=== PATIENT | female | born 1980 | race Caucasian/White ===

== ENCOUNTER 2019-07-13 12:00 | Inpatient (IN) | payer OTHER ==
[~2019-07-13 12:00] MED LIST: CITRIC ACID/SODIUM CITRATE 30 ML UNIT-DOSE CUP PO ONE; ELECTROLYTE-148 SOLN 500 ML IV ONE
[2019-07-13] MEDS ORDERED: ELECTROLYTE-148 SOLN 1,000 ML IV SCH (12:30)
[2019-07-13] MEDS ORDERED: ONDANSETRON 4 MG/2 ML VIAL IVPUSH PRN (12:51)
[2019-07-13 13:45] VITALS: BMI 35.5
[2019-07-13] MEDS ORDERED: morphine SULFATE/PF 0.5 MG/ML (2cc Syringe - QUVA) ONE (14:15)
[2019-07-13] MEDS ORDERED: WITCH HAZEL 50% (TUCKS) 40 PAD/JAR PAD TP PRN (14:21)
[2019-07-13] MEDS ORDERED: BENZOCAINE 20% 57 GM BOTTLE TP PRN (14:21)
[2019-07-13] MEDS ORDERED: diphenhydrAMINE HCL 25 MG CAPSULE (FP) PO PRN (14:21)
[2019-07-13] MEDS ORDERED: oxyCODONE HCL 5 MG TABLET PO PRN (14:21)
[2019-07-13] MEDS ORDERED: BENZOCAINE 28 GM HEMORRHOIDAL OINTMENT PR PRN (14:21)
[2019-07-13] MEDS ORDERED: METHYLERGONOVINE MALEATE 0.2 MG/1 ML AMP IM PRN (14:21)
[2019-07-13] MEDS ORDERED: OXYTOCIN 20 UNITS in 0.9% NS 20 UNIT/1,000 ML INFUS.BAG IV ONE (14:24)
[2019-07-13] MEDS ORDERED: D5W-LR W/ 20 UNITS OXYTOCIN 20 UNIT/1,000 ML INFUS.BAG IV SCH (14:30)
--- NOTE | 2019-07-13 14:37 | HP ---
Past Medical History - Admission Chief Complaint: Here for repeat c section. History of Present Illness: 38 y/o female with SIUP at 39.1 weeks here for scheduled repeat c section and bilateral tubal sterilization. complicated by AMA History Source: Patient, Medical Record Limitations to Obtaining History: No Limitations - Past Medical History Cardiovascular: Yes: HTN (h/o pre Eclampsia with prior ) Pulmonary: No: COPD Gastrointestinal: No: GERD Hepatobiliary: No: Cholelithiasis Renal/: No: UTI Reproductive: Yes: Fibroids. No: PID ...: 8 ...Para: 1 ...Term: 1 ...: 0 ...Spon : 1 ...Induced : 5 ...Multiple Gestation: 0 ...EDC by [facility]: 07/19/19 Infectious Disease: Yes: STD's (HSV has been on valtrex) Psych: Yes: Bipolar Endocrine: No: Diabetes Mellitus - Past Surgical History Past Surgical History: Yes: Hx Myomectomy: No Hx Transabdominal Cerclage: No - Smoking History Smoking history: Never smoked Have you smoked in the past 12 months: No - Alcohol/Substance Use Hx Alcohol Use: No - Social History History of Recent Travel: No Home Medications - Allergies Allergies/Adverse Reactions: Allergies Allergy/AdvReac Type Severity Reaction Status Date / Time No Known Allergies Allergy Verified 07/13/19 12:33 - Home Medications Home Medications: Ambulatory Orders Aspirin [ASA -] 81 mg PO DAILY 07/13/19 Ferrous Sulfate 325 mg PO DAILY 07/13/19 Pnv No.95/Ferrous Fum/Folic AC [ Vitamin Tablet] 1 each PO DAILY Valacyclovir HCl [Valtrex] 1,000 mg PO DAILY 07/13/19 Review of Systems - Review of Systems Constitutional: reports: No Symptoms Eyes: reports: No Symptoms HENT: reports: No Symptoms Neck: reports: No Symptoms Cardiovascular: reports: No Symptoms Respiratory: reports: No Symptoms Gastrointestinal: reports: No Symptoms Genitourinary: reports: No Symptoms Breasts: reports: No Symptoms Reported Musculoskeletal: reports: No Symptoms Integumentary: reports: No Symptoms Neurological: reports: No Symptoms Endocrine: reports: No Symptoms Hematology/Lymphatic: reports: No Symptoms Psychiatric: reports: No Symptoms Physical Exam - Maternity Vital Signs: Vital Signs Temperature 98.0 F 08/19/19 12:00 Pulse Rate 69 07/13/19 12:00 Respiratory Rate 20 07/13/19 12:00 Blood Pressure 122/82 07/13/19 12:00 O2 Sat by Pulse Oximetry (%) Constitutional: Yes: Well Nourished, No Distress, Calm Eyes: Yes: Conjunctiva Clear, EOM Intact HENT: Yes: Atraumatic, Normocephalic Neck: Yes: Supple, Trachea Midline Cardiovascular: Yes: Regular Rate and Rhythm Lungs: Clear to auscultation - Abdominal Exam/OB Number of Fetuses: Single Presentation: Vertex Contractions: No Category: I Accelerations: Uniform Decelerations: None - Vaginal Exam/OB Amniotic Membrane Status: Intact Presentation: Vertex/Position - Physical Exam Psychiatric: Yes: Alert, Oriented Hemorrhage Risk Assessment - Risk Factors Medium Risk Factors: Yes: None High Risk Factors: Yes: None Risk Score: 1 Risk Level: Medium Risk Problem List - Problems (1) History of delivery Code(s): Z98.891 - HISTORY OF UTERINE SCAR FROM PREVIOUS SURGERY (2) Advanced maternal age during Code(s): JTX3891 - Assessment/Plan 38 y/o with SIUP at 39.1 here for scheduled repeat c section and b/l tubal sterilization NPO ball nursery aware routine care
[2019-07-13] MEDS ORDERED: OXYTOCIN 10 UNITS/ML VIAL ONE (14:59)
[2019-07-13] MEDS ORDERED: ceFAZolin SODIUM 1 GM VIAL ONE (14:59)
[2019-07-13] MEDS ORDERED: SODIUM CHLORIDE 0.9% P/F 10 ML VIAL IJ ONE (14:59)
[2019-07-13] MEDS ORDERED: KETOROLAC TROMETHAMINE 30 MG/1 ML VIAL ONE ×2 (15:09→15:39)
--- NOTE | 2019-07-13 15:10 | PN ---
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 Not in distress. RNBC Watch for rresp distress Encourage BF/ Bonding
--- NOTE | 2019-07-13 17:19 | OP ---
Operative Note - Note: Operative Date: 07/13/19 Pre-Operative Diagnosis: prior c section, SIUP at 39 weeks, desires sterilization Operation: repeat LTCS, b/l tubal ligation Findings: normal b/l tubes and ovaries Post-Operative Diagnosis: Same as Pre-op Surgeon: Samanta Nelson Metal Shaping Machine Operator: Wil Chacon Anesthesiologist/EDUCATIONAL/DEVELOPMENT ASSISTANT: Nevaeh Richardson Anesthesia: Spinal Specimens Removed: placenta, portion of left and right fallopian tube Estimated Blood Loss (mls): 600 Operative Report Dictated: Yes
[2019-07-13] MEDS ORDERED: OXYTOCIN 20 UNITS in 0.9% NS 20 UNIT/1,000 ML INFUS.BAG IV SCH (17:30)
[2019-07-14] MEDS: IBUPROFEN 800 MG/8 ML IJ IVPB PRN ×2 (06:27→14:11)
[2019-07-14 07:38] LABS: HEMATOCRIT 29.3 % (32.4-45.2); HEMOGLOBIN 9.9 GM/dL (10.7-15.3); MCH 32.4 pg (25.7-33.7); MCHC 33.8 g/dl (32.0-36.0); MEAN PLT VOLUME 8.9 fl (7.5-11.1); PLATELET COUNT 146 K/MM3 (134-434); RBC 3.05 M/mm3 (3.60-5.2); RDW 16.2 % (11.6-15.6); WHITE BLOOD COUNT 10.5 K/mm3 (4.0-10.0)
[2019-07-14] MEDS ORDERED: DIPHTH,PERTUSS(ACELL),TET 0.5 ML DISP.SYRIN IM ONE (10:00)
[2019-07-14] MEDS ORDERED: valACYclovir HCL 1000 MG TABLET PO SCH (10:00)
[2019-07-14] MEDS: PRENATAL VITAMINS W/ FOLIC ACID TABLET (FP) PO SCH (10:13)
--- NOTE | 2019-07-14 12:27 | OP ---
DATE OF OPERATION: 07/13/2019 PREOPERATIVE DIAGNOSIS: Single intrauterine at 39 weeks, prior history of section, declined trial of labor, desired permanent sterilization. POSTOPERATIVE DIAGNOSIS: Single intrauterine at 39 weeks, prior history of section, declined trial of labor, desired permanent sterilization. PROCEDURE: Repeat low-transverse section, bilateral tubal ligation using modified Baudilio technique. SURGEON: Samanta Nelson MD ANESTHESIA: Spinal by Dr. Nevaeh Richardson. CARD SETTER: EBONI Dietz COMPLICATIONS: None. ESTIMATED BLOOD LOSS: 600 mL. SPECIMENS REMOVED: Placenta, portions of bilateral fallopian tubes. COUNTS: Sponge, needle, and instrument count correct. DISPOSITION: Stable to PACU. BRIEF HISTORY AND PROCEDURE: Patient is a 38-year-old female, who had been seen in the office throughout her , requested a repeat delivery. Consents for the procedure were signed upon admission on July 13, 2019, for her scheduled section. She also expressed desire for permanent sterilization. Consents for this procedure were also signed. The patient was taken back to the operating room, given spinal anesthesia, placed in the dorsal supine position. A Norris catheter was placed under sterile conditions. A hard timeout was performed. She was prepped and draped in the usual sterile fashion. A Pfannenstiel skin incision was created in the skin with a scalpel using her prior section incision. This incision was carried to the underlying layer of rectus fascia sharply and bluntly. The fascia was incised on either side of the midline and the fascial incision was carried in a superolateral direction sharply. The fascia was tented upward and dissected off the underlying layer of rectus muscle. The musculature was identified, laterally and the peritoneum was entered bluntly to allow for adequate room for delivery. A bladder blade was inserted. A transverse incision was created in the lower uterine segment, which was extended in a superolateral direction bluntly. The was then delivered from the right occiput transverse position. Anterior and posterior shoulder was delivered with ease along with the remainder of the . The cord was clamped twice and cut in between and the infant was taken over to the warmer to be assessed by the neonatology staff who was present for the entire delivery. Apgars of 9 and 9 were assigned. The placenta was delivered intact with a 3-vessel cord. The uterus was exteriorized from the abdomen, inspected, and cleared of all amniotic membrane and debris with a dry lap sponge. The hysterotomy was reapproximated in a double-layer closure using 1 Vicryl in a running locked fashion, second using 0 Biosyn in a running fashion. Excellent hemostasis was achieved. Attention was turned to the right fallopian tube, which was identified and traced to its fimbriated end. The midportion of the tube was identified and elevated with a Carlos Enrique clamp and tied off with 2 free ties using chromic suture. The portion of fallopian tube which was elevated was then excised and sent to Pathology for permanent evaluation. The same was repeated with the left fallopian tube. The posterior cul-de-sac was suctioned of blood, clot and debris. The uterus was placed back in the abdomen. Bilateral gutters were inspected and cleared of all blood clot and debris, and bilateral fallopian tube sites were noted to be hemostatic. The incision was again reexamined and noted to be hemostatic. The peritoneum was reapproximated in a running fashion using 2-0 chromic. The musculature was reapproximated in a single interrupted 2-0 chromic suture. The fascia was reapproximated using 1 Vicryl in a running fashion. The subcutaneous tissue was irrigated. Three interrupted sutures using 1 Vicryl. The skin was reapproximated using 3-0 Vicryl in a subcuticular fashion. Steri-Strips were applied. The patient tolerated the procedure well, is recovering in stable condition in the PACU after the procedure. Sponge, needle, instrument count was reported to be correct. SAMANTA NELSON DO /[id number]
[2019-07-14] MEDS ORDERED: BISACODYL 10 MG SUPP.RECT PR PRN (14:21)
[2019-07-14] MEDS: SIMETHICONE 80 MG TAB.CHEW (FP) PO PRN (23:09)
[2019-07-14] MEDS: oxyCODONE HCL 5 MG TABLET PO PRN (23:10)
[2019-07-14] MEDS: ACETAMINOPHEN 325 MG TABLET (FP) PO PRN (23:10)
[2019-07-15] MEDS: ACETAMINOPHEN 325 MG TABLET (FP) PO PRN ×2 (08:57→21:20)
[2019-07-15] MEDS: IBUPROFEN 600 MG TABLET (FP) PO PRN ×2 (08:57→21:21)
[2019-07-15] MEDS: PRENATAL VITAMINS W/ FOLIC ACID TABLET (FP) PO SCH ×2 (08:58→09:18)
--- NOTE | 2019-07-15 12:59 | PN ---
Post Progress Note - Subjective Subjective: Pt seen/examined. Doing well, no complaints. Pain controlled, tolerating diet , ambulating, voiding. VB minimal. Type of Delivery: Repeat C/S Vital Signs: Vital Signs Temperature 98 F 07/15/19 09:00 Pulse Rate 84 07/15/19 09:00 Respiratory Rate 18 07/15/19 09:00 Blood Pressure 130/80 07/15/19 09:00 O2 Sat by Pulse Oximetry (%) 97 07/13/19 16:45 Uterus: Yes: Fundus Firm Incision: Yes: Sutures intact Abdomen/GI: Yes: Abdomen soft Lochia: Yes: Rubra Lochia, amount: Small Extremities: Yes: Calves non-tender, Edema (trace b/l L/E edema) Perineum: Yes: Intact Activity: Ambulating - Labs Labs: CBC WBC 10.5 K/mm3 (4.0-10.0) H 07/14/19 07:05 RBC 3.05 M/mm3 (3.60-5.2) L 07/14/19 07:05 Hgb 9.9 GM/dL (10.7-15.3) L 07/14/19 07:05 Hct 29.3 % (32.4-45.2) L 07/14/19 07:05 MCV 96.0 fl (80-96) 07/14/19 07:05 MCH 32.4 pg (25.7-33.7) 07/14/19 07:05 MCHC 33.8 g/dl (32.0-36.0) 07/14/19 07:05 RDW 16.2 % (11.6-15.6) H 07/14/19 07:05 Plt Count 146 K/MM3 (134-434) D 07/14/19 07:05 MPV 8.9 fl (7.5-11.1) 07/14/19 07:05 Problem List - Problems (1) History of delivery Code(s): Z98.891 - HISTORY OF UTERINE SCAR FROM PREVIOUS SURGERY (2) Advanced maternal age during Code(s): WYY8353 - Assessment/Plan regular diet PO pain meds CBC tomorrow routine care
[2019-07-15] MEDS: SIMETHICONE 80 MG TAB.CHEW (FP) PO PRN (21:22)
[2019-07-15] MEDS ORDERED: SENNOSIDES/DOCUSATE COMBO (SENNA PLUS) TABLET (UD) PO PRN (22:00)
[2019-07-15 23:15] VITALS: PULSE 68
--- NOTE | 2019-07-16 04:30 | DS ---
Physical Exam-POPULATION GENETICIST Vital Signs: Vital Signs Temperature 98.4 F 07/15/19 22:00 Pulse Rate 68 07/15/19 22:00 Respiratory Rate 18 07/15/19 22:00 Blood Pressure 133/80 07/15/19 22:00 O2 Sat by Pulse Oximetry (%) 97 07/13/19 16:45 Labs: CBC, BMP 07/14/19 07:05 Delivery - Delivery Section: Repeat, Low Flap Transverse Type of Anesthesia: Spinal Episiotomy/Laceration: None EBL (cc): 600 Delivery, Single - Stages of Labor Date of Delivery: 07/13/19 Time of Delivery: 15:03 Date Placenta Delivered: 07/13/19 Time Placenta Delivered: 15:04 Placenta: Yes: Manual Removal - Condition of Radar Operator/Truck Shop Supervisor Present: Yes Name: Donna Vo Infant Gender: Female Weight: 6 lb Position: Right, OT Total Hours ROM (Hrs/Mins): 2 min - 1 Minute Total Score: 9 5 Minutes Total Score: 9 - [place] Feeding Plan Initial Plan: Elected not to breastfeed exclusively throughout hospitalization Discharge Summary Reason For Visit: REPEAT Current Active Problems Advanced maternal age during (Acute) History of delivery (Acute) Hospital Course: Pt admitted on 07/13/19 for scheduled repeat section and bilateral tubal ligation (see operative report for full details). She underwent an uncomplicated procedure. Her recovery was complicated by post op anemia but pt was stable/asymptomatic. Pt was discharged home with oral Iron and in stable condition on post op day 3. Condition: Good - Instructions Diet, Activity, Other Instructions: Physical activity Resume your normal everyday activity as tolerated but no heavy lifting or strenuous exercise until seen by your surgeon. You may walk unlimited amounts and climb stairs. You may resume driving the car when you feel safe and comfortable behind the wheel. No sexual activity as instructed. Wound care If there are tapes on the skin leave them in place. They will peel off in the next 7 to 10 days. Do Not Peel them off. You may shower the day after surgery. If there are tapes present on the skin, you may shower over them. Diet There are no dietary restrictions. Eat healthy, high-fiber foods. Drink 6 to 8 glasses of liquid each day. This will assist in keeping your bowels regular. Pain management You may take Tylenol or or Ibuprofen (for example, Motrin, Advil etc.) for mild pain. If any prescription pain medication is sent to your pharmacy for severe pain, please take as directed. Call MD for any of the following: Severe pain not relieved by medication Fever of 101 or higher Excessive bleeding or drainage on dressing Inability to urinate Disposition: HOME - Home Medications Comprehensive Discharge Medication List: Ambulatory Orders Aspirin [ASA -] 81 mg PO DAILY 07/13/19 Ferrous Sulfate 325 mg PO DAILY 07/13/19 Pnv No.95/Ferrous Fum/Folic AC [ Vitamin Tablet] 1 each PO DAILY Valacyclovir HCl [Valtrex] 1,000 mg PO DAILY 07/13/19 Ferrous Sulfate [Feosol] 325 mg PO BID #60 tablet 07/16/19 Ibuprofen [Motrin -] 600 mg PO QID PRN #28 tablet 07/16/19
[2019-07-16 08:37] LABS: HEMATOCRIT 30.8 % (32.4-45.2); HEMOGLOBIN 10.4 GM/dL (10.7-15.3); MCH 32.3 pg (25.7-33.7); MCHC 33.8 g/dl (32.0-36.0); MEAN CELL VOLUME 95.6 fl (80-96); MEAN PLT VOLUME 8.9 fl (7.5-11.1); PLATELET COUNT 192 K/MM3 (134-434); RBC 3.23 M/mm3 (3.60-5.2); RDW 15.9 % (11.6-15.6); WHITE BLOOD COUNT 7.6 K/mm3 (4.0-10.0)
[2019-07-16 09:04] VITALS: BP 128/90; TEMP 98.6
[2019-07-16] MEDS: SIMETHICONE 80 MG TAB.CHEW (FP) PO PRN (09:37)
[2019-07-16] MEDS: PRENATAL VITAMINS W/ FOLIC ACID TABLET (FP) PO SCH (09:37)
[2019-07-16] MEDS: IBUPROFEN 600 MG TABLET (FP) PO PRN (09:37)
[2019-07-16] MEDS: oxyCODONE HCL 5 MG TABLET PO PRN (09:38)
--- NOTE | 2019-07-22 18:08 | PATH ---
Surgical Pathology Report Patient Name: HEATHER SULTANA [facility]. Rec. #: [id number] /Age/Gender: 1980 (Age: 38) / F Account: [id number] Location: [facility] OBS/LABOR SERVICE REPRESENTATIVE Taken: 07/13/2019 Received: 07/14/2019 Reported: 07/22/2019 Physicians: Samanta Nelson M.D. Specimen(s) Received A: PLACENTA B: RIGHT PORTION FALLOPIAN TUBE C: LEFT PORTION FALLOPIAN TUBE Clinical History , 39.1, repeat ,bilateral fallopian tube ligation, history of bipolar, positive for HSV 2, advanced maternal age, fibroid, IAB x 5, SPAB x1 Final Diagnosis A. PLACENTA, : MATURE THIRD TRIMESTER PLACENTA (WEIGHT: 378 G) SHOWING MILD ACUTE CHORIOAMNIONITIS AND TRIVESSEL UMBILICAL CORD. B. PORTION OF RIGHT FALLOPIAN TUBE, TUBAL LIGATION: COMPLETE CROSS SECTION OF FALLOPIAN TUBE. C. PORTION OF LEFT FALLOPIAN TUBE, TUBAL LIGATION: COMPLETE CROSS SECTION OF FALLOPIAN TUBE. Electronically Signed Mayda Bolaños M.D. Gross Description A. The specimen is received fresh labeled "placenta" and is a 378 gram, 18 x 17 x 1.8 cm. placenta with attached membranes and umbilical cord. The attached membranes are glistening and translucent and insert marginally. The umbilical cord measures 34 cm. in length and averages 1 cm. in diameter. The cord inserts marginally. No true knots or strictures are identified. Cut surface of the umbilical cord reveals 3 vessels. The surface is carreno-blue with minimal fibrin deposition and appropriate caliber vessels. The maternal surface is red-brown with no defects. Sectioning reveals red-brown, spongy parenchyma. No lesions are identified. Manual Plate Filler sections are submitted in three cassettes as follows: 1- membrane rolls and umbilical cord; 2-3- full thickness sections of placenta. B. Received fresh labelled "right portion fallopian tube" is a 2.0 cm long by 0.5 cm in diameter portion of tissue consistent with a portion of fallopian tube. The fimbriated end is not identified. No focal lesions are identified. Sectioned and totally submitted in one cassette. C. Received fresh labelled "left portion fallopian tube" is a 2.2 cm long by 0.5 cm in diameter portion of tissue consistent with a portion of fallopian tube. The fimbriated end is not identified. No focal lesions are identified. Sectioned and totally submitted in one cassette. KAY/07/16/2019 vera07/16/2019
== END 2019-07-16 14:00 | disposition home or self-care (01) | DRG 540 ==
LOC: JLDR 12:00 → J3W 18:14
PROVIDERS: ADMIT Obstetrics & Gynecology; ATTEND Obstetrics & Gynecology
PROC: 10D00Z1 Extraction of Products of Conception, Low, Open Approach (ICD-10-PCS; principal; 2019-07-13)
PROC: 0UL70CZ Occlusion of Bilateral Fallopian Tubes with Extraluminal Device, Open Approach (ICD-10-PCS; 2019-07-13)
DX: O34.211 Maternal care for low transverse scar from previous cesarean delivery (principal); O10.02 Pre-existing essential hypertension complicating childbirth; O98.32 Other infections with a predominantly sexual mode of transmission complicating childbirth; A60.09 Herpesviral infection of other urogenital tract; O99.344 Other mental disorders complicating childbirth; F31.9 Bipolar disorder, unspecified; Z3A.39 39 weeks gestation of pregnancy; Z37.0 Single live birth; Z30.2 Encounter for sterilization
CPT/HCPCS: 36415; 85027; 87340; 88302-TC; 88307-TC; 90715